=== PATIENT | male | born 1950 | race Hispanic/Latino ===

== ENCOUNTER → 2020-02-18 | Outpatient (CLI) | payer OTHER | END | disposition home or self-care (01) | LOC: OIH 10:56 | PROVIDERS: ATTEND Family Medicine | DX: R14.0 Abdominal distension (gaseous) (principal) | CPT/HCPCS: 74018 ==

== ENCOUNTER 2024-02-07 18:02 | Emergency (ER) | payer OTHER ==
[~2024-02-07] VITALS: Ht 162.6 cm; Wt 64.0 kg
[2024-02-07 18:20] VITALS: BP 164/85; PULSE 74; RESP 18; O2SAT 97
[2024-02-07 18:27] LABS: APPEARANCE,URINE CLEAR (CLEAR); BILIRUBIN,URINE NEGATIVE (NEGATIVE); COLOR,URINE LIGHT-YELLOW (YELLOW); GLUCOSE, URINE (UA) NEGATIVE (NEGATIVE); KETONES,URINE NEGATIVE (NEGATIVE); LEUKOCYTE ESTERASE ,URINE 25 Leu/uL (NEGATIVE); NITRATE,URINE NEGATIVE (NEGATIVE); OCCULT BLOOD,URINE NEGATIVE (NEGATIVE); PH,URINE 5.5 (5.0-8.0); PROTEIN,URINE NEGATIVE (NEGATIVE); UROBILINOGEN,URINE 0.2 mg/dL (0.2-1.0)
[2024-02-07 18:30] LABS: ADD UA MICROSCOPIC YES
[2024-02-07 18:32] LABS: MUCUS,URINE RARE LPF (None Seen); RBC,URINE 0-1 /HPF (0-1); WBC,URINE 0-1 /HPF (0-1)
[2024-02-07] MEDS ORDERED: LIDOP TP (19:55)
== END 2024-02-07 20:03 | disposition home or self-care (01) ==
LOC: EDH 18:02
DX: K44.9 Diaphragmatic hernia without obstruction or gangrene (principal); K57.30 Diverticulosis of large intestine without perforation or abscess without bleeding; M43.16 Spondylolisthesis, lumbar region; M46.96 Unspecified inflammatory spondylopathy, lumbar region; Z88.0 Allergy status to penicillin
CPT/HCPCS: 74176; 81001

== ENCOUNTER 2024-02-09 09:57 | Emergency (ER) | payer OTHER ==
[~2024-02-09] VITALS: Ht 162.6 cm; Wt 62.6 kg
[~2024-02-09 09:57] MED LIST: LIDOP TP
[2024-02-09 09:58] VITALS: BP 158/96; PULSE 74; RESP 18
[2024-02-09] MEDS ORDERED: METH4TAB3 PO (10:11)
[2024-02-09] MEDS: DEXAMETHASONE SOD PHOSPHATE 4 MG/ML 1ML VIAL IM ONE (11:53)
[2024-02-09] MEDS: CYCLOBENZAPRINE HCL 10 MG TABLET PO ONE (11:53)
[2024-02-09] MEDS: IBUPROFEN 600 MG TABLET PO ONE (11:54)
== END 2024-02-09 13:23 | disposition home or self-care (01) ==
LOC: EDH 09:57
DX: S39.012A Strain of muscle, fascia and tendon of lower back, initial encounter (principal); M43.16 Spondylolisthesis, lumbar region; E78.00 Pure hypercholesterolemia, unspecified; Z88.0 Allergy status to penicillin; Z98.890 Other specified postprocedural states; V89.2XXA Person injured in unspecified motor-vehicle accident, traffic, initial encounter; Y93.I9 Activity, other involving external motion; Y92.488 Other paved roadways as the place of occurrence of the external cause; Y99.8 Other external cause status
CPT/HCPCS: 99283; 96372; J1100

== ENCOUNTER 2024-02-21 11:50 | Emergency (ER) | payer OTHER ==
[~2024-02-21] VITALS: Ht 162.6 cm; Wt 63.5 kg
[~2024-02-21 11:50] MED LIST changes: +METH4TAB3 PO
[2024-02-21] MEDS: KETOROLAC 30MG VIAL (30MG/ML) IM ONE (12:58)
[2024-02-21 14:23] VITALS: BP 131/72; PULSE 60; RESP 16; O2SAT 99
== END 2024-02-21 14:39 | disposition home or self-care (01) ==
LOC: EDH 11:50
DX: K44.9 Diaphragmatic hernia without obstruction or gangrene (principal); N40.0 Benign prostatic hyperplasia without lower urinary tract symptoms; K57.90 Diverticulosis of intestine, part unspecified, without perforation or abscess without bleeding; E78.00 Pure hypercholesterolemia, unspecified; Z79.899 Other long term (current) drug therapy; Z98.890 Other specified postprocedural states; Z88.0 Allergy status to penicillin
CPT/HCPCS: 99285; 71250; 74176; 96372; J1885

== ENCOUNTER → 2024-05-02 | Outpatient (CLI) | payer OTHER | END | disposition home or self-care (01) | LOC: RAH 08:30 | PROVIDERS: ATTEND Internal Medicine Gastroenterology | DX: K44.9 Diaphragmatic hernia without obstruction or gangrene (principal); R10.12 Left upper quadrant pain; K21.00 Gastro-esophageal reflux disease with esophagitis, without bleeding | CPT/HCPCS: 74240 ==